=== PATIENT | male | born 1960 | race Asian ===

== ENCOUNTER 2021-01-20 06:54 | Emergency (ER) | payer BC ==
[~2021-01-20] VITALS: Ht 167.6 cm; Wt 80.9 kg
[~2021-01-20 06:54] MED LIST: AZIT500T9 PO; PRED50TA PO
[2021-01-20] MEDS ORDERED: ketorolac trometh. 30mg/ml inj. IV ONE (07:35)
[2021-01-20] MEDS ORDERED: normal saline 1000ML IV soln IVB ONE (07:40)
[2021-01-20 07:50] LABS: BASOPHILS # (AUTO) 0.1 X10'3 (0-0.2); BASOPHILS % (AUTO) 0.6 % (0-1); EOSINOPHILS % (AUTO) 0.5 % (0-6); HEMATOCRIT 51.4 % (42.0-52.0); HEMOGLOBIN 17.5 g/dl (14.0-17.9); LYMPHOCYTES # (AUTO) 1.5 X10'3 (1.1-4.8); LYMPHOCYTES % (AUTO) 14.6 % (21-51); MEAN CORPUSCULAR HEMOGLOBIN 29.3 PG (27.0-31.0); MEAN CORPUSCULAR HGB CONC 33.9 g/dL (33.0-36.5); MEAN CORPUSCULAR VOLUME 86.4 FL (78-98); MEAN PLATELET VOLUME 8.9 FL (7.4-10.4); MONOCYTES # (AUTO) 0.6 X10'3 (0-0.9); MONOCYTES % (AUTO) 6.1 % (2-12); NEUTROPHILS % (AUTO) 78.2 % (42-75); PLATELET COUNT 199 X10'3 (140-440); RED BLOOD COUNT 5.96 X10'6 (4.70-6.10); RED CELL DISTRIBUTION WIDTH 13.7 % (11.5-14.5); WHITE BLOOD COUNT 10.2 X10'3 (4.5-11.0)
[2021-01-20] MEDS ORDERED: fentaNYL/PF 50MCG/1 ML 2ML syringe IV ONE (07:55)
[2021-01-20] MEDS ORDERED: ondansetron/PF 4mg/2ml inj IV ONE (07:55)
[2021-01-20 08:04] LABS: ALANINE AMINOTRANSFERASE 40 U/L (12-78); ALBUMIN 3.9 G/DL (3.4-5.0); ALKALINE PHOSPHATASE 66 IU/L (46-116); ANION GAP 12 (8-16); ASPARTATE AMINO TRANSFERASE 24 U/L (10-37); BILIRUBIN,TOTAL 1.2 MG/DL (0.1-1.0); BLOOD UREA NITROGEN 16 MG/DL (7-18); BUN/CREATININE RATIO 11.1 (5.4-32.0); CALCIUM 8.7 MG/DL (8.5-10.1); CHLORIDE 107 MMOL/L (99-107); CREATININE 1.44 MG/DL (0.60-1.10); GLUCOSE 142 MG/DL (70-104); LIPASE 129 U/L (73-393); POTASSIUM 3.9 MMOL/L (3.5-5.1); SODIUM 142 MMOL/L (135-145); TOTAL CARBON DIOXIDE 22.6 MMOL/L (24-32); TOTAL PROTEIN 7.7 G/DL (6.4-8.2); eGFR 50 ML/MIN
[2021-01-20 08:11] VITALS: BP 155/94
--- NOTE | 2021-01-20 08:55 | NUR ---
To CT at this time via wheelchair.
--- NOTE | 2021-01-20 09:05 | NUR ---
patient back in the room.
[2021-01-20 09:09] LABS: COLOR,URINE YELLOW (Yellow); GLUCOSE, URINE NEGATIVE (Neg); KETONES,URINE NEGATIVE (Neg); NITRITES, URINE NEGATIVE (Neg); OCCULT BLOOD,URINE LARGE (Neg); PROTEIN,URINE 30 mg/dl (Neg); UA COLLECTION TYPE CLN CATCH MIDSTREAM
[2021-01-20 09:10] LABS: LEUKOCYTE ESTERASE ,URINE NEGATIVE (Neg); UROBILINOGEN,URINE 0.2 E.U/dL (0.2-1.0)
[2021-01-20 09:13] LABS: CLARITY,URINE SLIGHTLY CLOUDY (Clear)
[2021-01-20 09:14] LABS: BACTERIA,URINE NONE SEEN /HPF (Neg); RBC,URINE 20-50 /HPF (0-2); SQUAMOUS EPITHELIAL CELL,UR FEW /LPF (FEW)
[2021-01-20] MEDS ORDERED: CEPH-585 PO (10:47)
[2021-01-20] MEDS ORDERED: HYDR-3965 PO (10:47)
[2021-01-20] MEDS ORDERED: FLO0.4C PO (10:47)
== END 2021-01-20 11:23 | disposition home or self-care (01) ==
LOC: ER 06:54
DX: N20.0 Calculus of kidney (principal); Z79.2 Long term (current) use of antibiotics; Z79.899 Other long term (current) drug therapy
CPT/HCPCS: 36415; 74176; 80053; 81001; 83690; 85025; 87088; 96361; 96374; 96375; 99284; J1885; J2405; J3010; J7030